=== PATIENT | male | born 1955 | race Caucasian/White ===

== ENCOUNTER 2022-09-11 17:52 | Emergency (ER) | payer MEDICARE, OTHER ==
[~2022-09-11] VITALS: Ht 182.9 cm; Wt 99.8 kg
[2022-09-11] MEDS ORDERED: ASPIRIN81 MG PO (19:13)
[2022-09-11] MEDS ORDERED: SOTALOL80 MG PO (19:14)
[2022-09-11] MEDS ORDERED: ENALAPRIL MALEA20 MG PO (19:14)
[2022-09-11] MEDS ORDERED: METOPROLOL SUCC25 MG PO (19:15)
[2022-09-11] MEDS ORDERED: SPIRONOLACTONE25 MG PO (19:16)
[2022-09-11] MEDS ORDERED: ELIQUIS5 MG PO (19:16)
[2022-09-11] MEDS ORDERED: FLOMAX0.4 MG PO (19:17)
[2022-09-11] MEDS ORDERED: LEVOTHYROXINE125 MC1 PO (19:17)
[2022-09-11] MEDS ORDERED: PROTONIX40 MG PO (19:17)
[2022-09-11] MEDS ORDERED: FENOFIBRATE40 MG PO (19:18)
[2022-09-11] MEDS ORDERED: PRALUENT P150 MG/1 M SQ (19:18)
--- NOTE | 2022-09-14 15:30 | EKG ---
[facility] [address] [facility] [place], [place] [address] Signed Normal sinus rhythm Left axis deviation Right bundle branch block Anteroseptal infarct , age undetermined Abnormal ECG No previous ECGs available Confirmed by LIVAN FIGUEREDO MD ([id number] on 09/14/2022 3:30:07 PM Electronically Signed By: LIVAN FIGUEREDO MD 09/14/22 1530 PATIENT NAME: KENNY HU JR Electrocardiogram DATE OF : 55 PHYSICIAN: LIVAN FIGUEREDO MD REPORT #: [id number] REPORT IS CONFIDENTIAL AND NOT TO BE RELEASED WITHOUT AUTHORIZATION
== END 2022-09-11 20:48 | disposition home or self-care (01) ==
LOC: ED 17:52
DX: H53.2 Diplopia (principal); I10 Essential (primary) hypertension; Z20.822 Contact with and (suspected) exposure to COVID-19; Z88.8 Allergy status to other drugs, medicaments and biological substances; Z79.899 Other long term (current) drug therapy; Z79.82 Long term (current) use of aspirin
CPT/HCPCS: 36415; 70450; 70496; 70498; 71045; 80053; 84443; 85025; 87502; 93005; 93010; 99285-25; C9803; Q9967; U0003